=== PATIENT | male | born 1980 | race Caucasian/White ===

== ENCOUNTER → 2017-03-11 | Outpatient (CLI) | payer OTHER ==
[~2017-03-11] MED LIST: AMX500 PO; LRT5 PO; MOME50SP5
[2017-03-11 10:39] LABS: COMPLETE YES; EOS % 7.8 %; HEMATOCRIT 45.6 % (42-52); IG% 0.6 %; LYMPH % 40.8 %; MEAN CELL VOLUME 86.5 fL (80-100); MEAN CORPUSCULAR HEMOGLOBIN 29.6 pg (25-34); MEAN CORPUSCULAR HGB CONC 34.2 g/dl (32-36); MEAN PLATELET VOLUME 10.3 fL (7.4-10.4); MONO % 5.9 %; NEUT % 44.9 %; PLATELET COUNT 172 K/uL (130-400); RED BLOOD COUNT 5.27 M/uL (4.7-6.1); WHITE BLOOD COUNT 5.39 K/uL (4.8-10.8)
[2017-03-11 11:18] LABS: ALT/SGPT 33 U/L (12-78); AST/SGOT 23 U/L (15-37); BLOOD UREA NITROGEN 14 mg/dl (7-18); BUN/CREATININE RATIO 11.7 (10-20); CARBON DIOXIDE 25 mmol/L (21-32); CHLORIDE 105 mmol/L (98-107); GLUCOSE 99 mg/dl (70-99); POTASSIUM 3.9 mmol/L (3.5-5.1); SODIUM 137 mmol/L (136-145)
[2017-03-11 11:19] LABS: ALB/GLOB RATIO 0.7 (0.9-2); ALKALINE PHOSPHATASE 71 U/L (45-117)
[2017-03-17 15:34] LABS: LSP % CELLS ANALYZED CD4 7 % (30-61); LSP ABSOLUTE CT CD4 166 cells/uL (490-1740); LSP LYMPHOCYTES ABSOLUTE 2280 cells/uL (850-3900)
== END | disposition home or self-care (01) ==
LOC: C.LAB1850 09:33
PROVIDERS: ATTEND Internal Medicine Infectious Disease
DX: B20 Human immunodeficiency virus [HIV] disease (principal)

== ENCOUNTER → 2017-05-16 | Outpatient (CLI) | payer OTHER ==
[2017-05-16 23:23] LABS: RAPID PLASMA REAGIN REACTIVE (NONREACT)
[2017-05-16 23:25] LABS: RAPID PLASMA REAGIN TITRE 128 DILS (NR)
== END | disposition home or self-care (01) ==
LOC: C.LAB1850 09:13
PROVIDERS: ATTEND Internal Medicine Infectious Disease
DX: A51.49 Other secondary syphilitic conditions (principal)

== ENCOUNTER 2017-06-21 20:12 | Emergency (ER) | payer OTHER ==
[~2017-06-21] VITALS: Ht 172.7 cm; Wt 98.2 kg
[2017-06-21 20:25] VITALS: TEMP 36.7; Ht 172.7 cm; Wt 98.2 kg
--- NOTE | 2017-06-21 21:29 | DIAGNOSTIC IMAGING REPORT ---
R VENOUS DOPP LOWER EXT UNILAT HISTORY: 36 years-old Male R LEG PAIN, RECENT FLIGHT. EDEMA. Acute right lower extremity pain and edema with concern for DVT COMPARISON: None available TECHNIQUE: Multiple real-time sonogram images of the right lower extremity deep venous structures were obtained assessing grayscale appearance and color and spectral flow FINDINGS: There is normal compressibility, augmentation, phasicity and flow within the right lower extremity deep venous structures. IMPRESSION: No sonographic evidence of deep venous thrombosis. The above report was generated using voice recognition software. It may contain grammatical, syntax or spelling errors. Electronically signed by: Michael Kelley M.D. 06/21/2017 9:28 PM Dictated Date/Time: 06/21/2017 9:27 PM
[2017-06-21] MEDS ORDERED: EMTR1TAB10 PO (21:37)
[2017-06-21] MEDS ORDERED: IBUP-103 PO (21:37)
[2017-06-21] MEDS ORDERED: DOLU1TAB PO (21:37)
[2017-06-21] MEDS ORDERED: OXYCODONE IR HOME PACK PO STA (21:44)
--- NOTE | 2017-06-21 21:44 | EMERGENCY ROOM VISIT NOTE ---
History First contact with patient: 20:30 Chief Complaint: LEG PAIN,LEG INJURY Stated Complaint: SWOLLEN RT LEG/FOOT, PAIN ON R HIP History of Present Illness The patient is a 36 year old male who presents to the Emergency Room via private vehicle with complaints of "swollen right leg/foot, pain on right hip". The patient states that June 14 of this year he developed pain in the right gluteal region. This then progressed down the back of his thigh and now to his right foot. There is a cold sensation in the right foot and he recently developed a blister on this region. He also notes he flew on June 19 to [facility]. He denies any chest pain, shortness of breath, fevers or chills. He does note a history of HIV. Review of Systems A complete 6-point Review of Systems was discussed with the patient, with pertinent positives and negatives listed in the History of Present Illness. All remaining Review of Systems questions can be considered negative unless otherwise specified. Past Medical/Surgical History HIV. Family History Noncontributory Social History Smoking Status: Former Smoker Patient lives locally. Current/Historical Medications Scheduled Dolutegravir Sodium (Tivicay), 50 MG PO DAILY Emtricitabine-Tenofovir Alafen (Descovy 200-25 mg), 1 TAB PO DAILY Valacyclovir Hcl (Valtrex), 1 TAB PO TID Scheduled PRN Ibuprofen Tab (Advil), 800 MG PO Q8 PRN for Pain or Fever Oxycodone Ir (Roxicodone Ir), 1-2 TAB PO Q4H PRN for Pain Physical Exam Vital Signs Date Time Temp Pulse Resp B/P (MAP) Pulse Ox O2 Delivery O2 Flow Rate FiO2 06/21/17 21:50 71 16 146/98 96 Room Air 06/21/17 20:25 36.7 89 18 142/88 96 Room Air Physical Exam VITAL SIGNS - Vital signs and nursing notes were reviewed. Stable. GENERAL -36-year-old male appearing his stated age who is in no acute distress. Communicates well with provider and answers questions appropriately. SKIN - there is a raised, clustered vesicular rash on the patient's right foot. Is is in between the dermatome of L5 and S1. HEAD - NC/AT. EYES - PERRL with EOMI bilaterally. Sclera anicteric. ABDOMEN - Abdominal contour normal without pulsations or visible masses. BS normoactive all four quadrants. No tenderness, palpable masses, hepatosplenomegaly, or ascites noted. EXTREMITIES - No clubbing or peripheral cyanosis. No pretibial edema present. Tenderness of the right gluteal region extending down the dermatome of L5-S1 to the right foot with a vesicular rash only at the foot. +5/5 strength noted in UE/LE bilaterally. He is neurovascularly intact in this region with good quadriceps reflex. Medical Decision & Procedures ER Provider Diagnostic Interpretation: R VENOUS DOPP LOWER EXT UNILAT HISTORY: 36 years-old Male R LEG PAIN, RECENT FLIGHT. EDEMA. Acute right lower extremity pain and edema with concern for DVT COMPARISON: None available TECHNIQUE: Multiple real-time sonogram images of the right lower extremity deep venous structures were obtained assessing grayscale appearance and color and spectral flow FINDINGS: There is normal compressibility, augmentation, phasicity and flow within the right lower extremity deep venous structures. IMPRESSION: No sonographic evidence of deep venous thrombosis. The above report was generated using voice recognition software. It may contain grammatical, syntax or spelling errors. Electronically signed by: Michael Kelley M.D. 06/21/2017 9:28 PM Dictated Date/Time: 06/21/2017 9:27 PM Medications Administered Medications (Trade) Dose Ordered Sig/Nano Route Start Time Stop Time Status Last Admin Dose Admin Valacyclovir HCl (Valtrex Tab) 1,000 mg NOW STAT PO 06/21/17 21:44 06/21/17 21:46 DC 06/21/17 21:44 1,000 MG Valacyclovir HCl (Valtrex Tab) 2,000 mg NOW STAT PO 06/21/17 21:44 06/21/17 21:46 DC 06/21/17 21:44 2,000 MG Oxycodone HCl (Roxicodone Immediate Rel 5MG Home Pack) 1 homepack UD STAT PO 06/21/17 21:44 06/21/17 21:46 DC 06/21/17 21:44 1 HOMEPACK Medical Decision Patient was seen and evaluated as above. He presents to us today with right leg pain. There is evidence of a herpetic rash on the patient's right foot. This is consistent with shingles. Ultrasound was obtained of the right lower extremity to rule out DVT secondary to his long flight and edema. This was negative. I suspect he was likely experiencing a prodromal symptom of essentially sciatica in the L5-S1 dermatome with the herpetic lesion now out breaking on the foot in the same dermatome. The pain tracks exactly up through the same dermatome. He notes HIV. His last cell counts were good per patient. He is to follow with the local infectious disease doctor by calling him tomorrow to schedule follow-up. He may require additional days beyond 7 depending upon his progression. He appears stable for outpatient management. He'll be given a short prescription of pain medication secondary to his presentation here today. He was educated upon management, educated upon worrisome symptoms which to return, had questions as per discharge, and was discharged home in good condition. He will be given a 24 hour supply from here as his pharmacy is closed, with the remainder sent to the pharmacy. In evaluation treatment this patient the following differential diagnoses were entertained: Sciatica, lumbar strain, disc bulge, herpetic lesion, among others. Impression Primary Impression: Leg pain, right Additional Impression: shingles (herpes zoster) Departure Information Dispostion Home / Self-Care Condition GOOD Prescriptions Oxycodone Ir (Roxicodone Ir) 5 Mg Tab 1-2 TAB PO Q4H Y for Pain, #20 TAB For Initial Treatment Prov: Fareed Huerta PA-C 06/21/17 Valacyclovir Hcl (VALTREX) 1 Gm Tab 1 TAB PO TID for 6 Days, #18 TAB Prov: Fareed Huerta PA-C 06/21/17 Referrals Porfirio Giordano D.OPenny (PCP) Patient Instructions ED [facility], [facility] Additional Instructions You have been treated in the Emergency Department for Hip Pain and a rash, this is shingles (herpes zoster). . You have been prescribed Oxy IR to be used for pain control. This is a narcotic medication. You cannot drive or consume alcohol while on this medicine. This medicine should only be used for pain that cannot be controlled with over-the- counter pain medicines. Valtrex 1000mg (1 gram) every 8 hours for 7 days, you may need longer and i recommend following with Dr. Burnette for further management. For pain control, you can use the following [id number] medicines (if >12 yo): - Regular strength (325mg/tab) Tylenol (acetaminophen) 2 tabs every 4-6 hours as needed. Do not exceed 12 tablets in a 24 hour period. Avoid taking more than 3 grams (3000 mg) of Tylenol per day. This includes any other sources of acetaminophen you may take on a regular basis. - Regular strength (200 mg/tab) Advil (ibuprofen) 1-2 tabs every 4-6 hours as needed. Do not exceed a dose of 3200 mg per day. Return to the Emergency Department if your current symptoms worsen despite treatment course outlined above. Problem Qualifiers
[2017-06-21 21:50] VITALS: BP 146/98; PULSE 71; O2SAT 96
[2017-06-21] MEDS ORDERED: OXYC-90 PO ×2 (21:55→22:22)
[2017-06-21] MEDS ORDERED: VALA1TAB31 PO (21:55)
[2017-06-21] MEDS ORDERED: EMPTY 8 DRAM VIAL ONE (21:56)
== END 2017-06-21 22:10 | disposition home or self-care (01) ==
LOC: C.EDB 20:13 → C.EDD 22:10
DX: M25.551 Pain in right hip (principal); B02.9 Zoster without complications; B20 Human immunodeficiency virus [HIV] disease; Z87.891 Personal history of nicotine dependence

== ENCOUNTER → 2017-07-28 | Outpatient (CLI) | payer OTHER ==
[~2017-07-28] MED LIST changes: -AMX500 PO; +DOLU1TAB PO; +EMTR1TAB10 PO; +IBUP-103 PO; -LRT5 PO; -MOME50SP5; +OXYC1TAB3 PO
--- NOTE | 2017-07-28 10:53 | DIAGNOSTIC IMAGING REPORT ---
CHEST 2 VIEWS ROUTINE CLINICAL HISTORY: WHEEZING,PPD POSITIVE,HEMOPTYSIS dyspnea COMPARISON STUDY: 03/04/2008 FINDINGS: The bones soft tissues and hemidiaphragms are normal. The cardiomediastinal silhouette is normal. The lungs are clear. The pulmonary vasculature is normal. IMPRESSION: Negative chest. The above report was generated using voice recognition software. It may contain grammatical, syntax or spelling errors. Electronically signed by: Robert Driscoll M.D. 07/28/2017 10:51 AM Dictated Date/Time: 07/28/2017 10:50 AM
== END | disposition home or self-care (01) ==
LOC: C.RAD1850 10:17
PROVIDERS: ATTEND Family Medicine
DX: R04.2 Hemoptysis (principal); R76.11 Nonspecific reaction to tuberculin skin test without active tuberculosis; R06.2 Wheezing

== ENCOUNTER → 2017-08-15 | Outpatient (CLI) | payer OTHER ==
[2017-08-15 11:57] LABS: BASO % 0.4 %; BASO ABS # 0.02 K/uL (0-0.2); EOS % 5.7 %; EOS ABS # 0.27 K/uL (0-0.5); HEMATOCRIT 45.1 % (42-52); IG# 0.02 K/uL (0.00-0.02); LYMPH % 40.6 %; LYMPH ABS # 1.92 K/uL (1.2-3.4); MEAN CELL VOLUME 89.3 fL (80-100); MEAN CORPUSCULAR HEMOGLOBIN 31.7 pg (25-34); MEAN CORPUSCULAR HGB CONC 35.5 g/dl (32-36); MEAN PLATELET VOLUME 10.3 fL (7.4-10.4); MONO % 5.1 %; MONO ABS # 0.24 K/uL (0.11-0.59); NEUT % 47.8 %; NEUT ABS # 2.26 K/uL (1.4-6.5); PLATELET COUNT 198 K/uL (130-400); RED CELL DISTRIBUTION WIDTH CV 14.4 % (11.5-14.5); RED CELL DISTRIBUTION WIDTH SD 46.4 fL (36.4-46.3); WHITE BLOOD COUNT 4.73 K/uL (4.8-10.8)
[2017-08-15 12:08] LABS: ALBUMIN 3.8 gm/dl (3.4-5.0); ALT/SGPT 41 U/L (12-78); BLOOD UREA NITROGEN 11 mg/dl (7-18); CARBON DIOXIDE 24 mmol/L (21-32); CHOLESTEROL 224 mg/dl (0-200); CREATININE 1.32 mg/dl (0.60-1.40); GLUCOSE 102 mg/dl (70-99); POTASSIUM 3.6 mmol/L (3.5-5.1); SODIUM 138 mmol/L (136-145)
[2017-08-15 12:11] LABS: ALKALINE PHOSPHATASE 64 U/L (45-117); AST/SGOT 21 U/L (15-37); LDL CHOLESTEROL CALCULATED 150 mg/dl; TOTAL PROTEIN 8.1 gm/dl (6.4-8.2)
[2017-08-17 00:30] LABS: RAPID PLASMA REAGIN REACTIVE (NONREACT)
[2017-08-17 00:55] LABS: RAPID PLASMA REAGIN TITRE 128 DILS (NR)
--- NOTE | 2017-09-02 08:40 | CODING QUERY NO DIAGNOSIS ---
: 1980 TREATMENT RENDERED WITHOUT A DIAGNOSIS To promote full compliance with coding requirements relating to patient care, physician participation is requested in all cases of coding team lead uncertainty. Please assist us with providing a diagnosis/symptom for the test(s) below: A diagnosis/symptom was not documented on your Order. A valid diagnosis/symptom is required to bill all insurances. Please remember that we are unable to code a diagnosis of rule out, probable, possible, questionable, or suspected. Tests that require a diagnosis: DOS: 08/15/17 * FLOURESCENT TREPONEMAL AB DIAGNOSIS: Provider Signature: Date: Thank you Lissa Johnson Health Information Management Once completed, please kindly fax back to [phone] For questions please call [phone]
== END | disposition home or self-care (01) ==
LOC: C.LAB1850 09:46
PROVIDERS: ATTEND Internal Medicine Infectious Disease
DX: B20 Human immunodeficiency virus [HIV] disease (principal); A51.49 Other secondary syphilitic conditions